=== PATIENT | male | born 1990 | race Caucasian/White ===

== ENCOUNTER 2020-04-28 20:28 | Inpatient (IN) | payer OTHER ==
[~2020-04-28] VITALS: Ht 170.2 cm; Wt 81.2 kg
--- NOTE | 2020-04-28 21:47 | NUR ---
SENT BY DR KAUFFMAN FOR ADMISSION FOR LEFT ANKLE SURGERY. PT AAOX4, VSS. RR EVEN & UNLABORED. DENIES CP, SOB, DIZZINESS, N/V AT THIS TIME. PT SEEN & EVAL'D BY DR. LINDQUIST. WILL CONT TO MONITOR.
[2020-04-28 22:03] LABS: BASOPHILS # (AUTO) 0.1 /CMM (0.0-0.2); BASOPHILS % (AUTO) 0.7 % (0.0-2.0); EOSINOPHILS % (AUTO) 3.5 % (0.0-6.0); HEMATOCRIT 43 % (39-51); HEMOGLOBIN 14.5 g/dL (13.5-17.5); LYMPHOCYTES % (AUTO) 26.9 % (20.0-44.0); MEAN CORPUSCULAR HGB CONC 34 g/dl (31.0-36.0); MEAN CORPUSCULAR VOLUME 88 fL (80-96); MONOCYTES # (AUTO) 0.4 /CMM (0.1-1.30); MONOCYTES % (AUTO) 5.5 % (2.0-12.0); NEUTROPHILS # (AUTO) 4.7 /CMM (1.8-8.9); NEUTROPHILS % (AUTO) 63.4 % (43.0-81.0); PLATELET COUNT (AUTO) 243 /CMM (150-450); RED BLOOD CELL COUNT(AUTO) 4.88 MIL/uL (4.5-6.0); WHITE BLOOD COUNT (AUTO) 7.5 K/uL (4.3-11.0)
[2020-04-28 22:22] LABS: CALCIUM, SERUM 9.5 mg/dL (8.5-10.1); CREATININE 1.1 mg/dL (0.6-1.3); POTASSIUM 3.8 mmol/L (3.5-5.1)
[2020-04-28] MEDS ORDERED: MORPHINE SULFATE INJ 2 MG/ML DISP.SYRIN IV PRN (22:30)
[2020-04-28] MEDS ORDERED: ONDANSETRON HCL/PF 4 MG/2 ML VIAL IVP PRN (22:30)
--- NOTE | 2020-04-28 22:51 | NUR ---
REPORT GIVEN TO JASMYN ROSA FOR [facility]
--- NOTE | 2020-04-29 00:19 | NUR ---
CALLED LAB RE DIALLOID RAPID RESULT, NEGATIVE
[2020-04-29 00:35] VITALS: BP 109/40
--- NOTE | 2020-04-29 00:35 | NUR ---
MS GREEN CHAIN PULLER NOTE RECEIVED PATIENT VIA GURNEY. PATIENT AMBULATED TO BED WITH CRUTCHES. TOLERATING ROOM AIR. RESPIRATIONS ARE EVEN AND UNLABORED. NO S/S SOB NOTED. NO C/O PAIN AT THIS TIME. STATES THAT LEFT ANKLE IS CRAMPING BUT NOT HURTING. IN NO APPARENT DISTRESS. IV ACCESS IN RAC #20 PATENT AND SALINE LOCKED. HOT SEALING MACHINE OPERATOR OBTAINED VITAL SIGNS AND COMPLETED BELONGINGS LIST. INITIAL PHYSICAL ASSESSMENT COMPLETED AT THIS TIME. SKIN ASSESSMENT CONDUCTED, SKIN INTACT. BED IS LOW AND LOCKED, HOB ELEVATED IN SEMI FOWLERS, SIDE RAILS UP X2. CALL LIGHT WITHIN REACH. INFORMED ON USE OF CALL LIGHT. ALSO INFORMED PATIENT OF PO STATUS FOR SURGERY. PATIENT UNDERSTOOD. NPO SIGN PLACED ON DOOR. CONSENT HAVE BEEN SIGNS FOR SURGERY, ANESTHESIA AND BLOOD. WILL CONTINUE TO MONITOR THROUGHOUT SHIFT.
--- NOTE | 2020-04-29 00:37 | NUR ---
pt was transferred to the third floor in stable condition via rney
[2020-04-29] MEDS ORDERED: FENTANYL PF 100MCG/2ML AMPUL ONE (06:21)
[2020-04-29] MEDS ORDERED: BACITRACIN 50000 UNITS/VIAL ONE (06:34)
[2020-04-29] MEDS ORDERED: BUPIVACAINE 0.5 % PF 150 MG/30 ML VIAL ONE (06:34)
[2020-04-29 06:37] LABS: BASOPHILS % (AUTO) 0.4 % (0.0-2.0); EOSINOPHILS % (AUTO) 2.9 % (0.0-6.0); HEMATOCRIT 39 % (39-51); HEMOGLOBIN 13.5 g/dL (13.5-17.5); LYMPHOCYTES # (AUTO) 2.3 /CMM (0.8-4.8); LYMPHOCYTES % (AUTO) 30.5 % (20.0-44.0); MEAN CORPUSCULAR HGB CONC 34 g/dl (31.0-36.0); MEAN CORPUSCULAR VOLUME 86 fL (80-96); MONOCYTES # (AUTO) 0.5 /CMM (0.1-1.30); MONOCYTES % (AUTO) 6.7 % (2.0-12.0); NEUTROPHILS # (AUTO) 4.5 /CMM (1.8-8.9); NEUTROPHILS % (AUTO) 59.5 % (43.0-81.0); PLATELET COUNT (AUTO) 220 /CMM (150-450); RED BLOOD CELL COUNT(AUTO) 4.57 MIL/uL (4.5-6.0); WHITE BLOOD COUNT (AUTO) 7.6 K/uL (4.3-11.0)
[2020-04-29 06:49] LABS: CALCIUM, SERUM 9.3 mg/dL (8.5-10.1); MAGNESIUM 2.3 mg/dL (1.8-2.4); PHOSPHORUS 4.2 mg/dL (2.5-4.9); POTASSIUM 3.6 mmol/L (3.5-5.1)
--- NOTE | 2020-04-29 06:54 | NUR ---
ms rn note surgery team came to get patient. transfered on bed. a/ox4. tolerating room air. no resp distress. in no apparent distress. iv access in rac#20 patent and saline locked.
[2020-04-29] MEDS ORDERED: HYDR-3980 PO (08:33)
[2020-04-29] MEDS ORDERED: FLUMAZENIL 0.5 MG VIAL ONE (08:35)
[2020-04-29 08:44] VITALS: BP 116/66
[2020-04-29] MEDS ORDERED: HYDROMORPHONE 1 MG/1 ML DISP.SYRIN ONE ×2 (09:06→09:31)
[2020-04-29 10:05] VITALS: BP 137/74
[2020-04-29] MEDS ORDERED: HYDROCODONE/APAP 5/325MG TABLET PO PRN (11:00)
[2020-04-29] MEDS: HYDROCODONE/APAP 5/325MG TABLET PO PRN ×2 (11:54→18:06)
[2020-04-29] MEDS ORDERED: IV NS 0.9% 1,000 ML IV PRN (12:00)
[2020-04-29 16:00] VITALS: BP 108/63
--- NOTE | 2020-04-29 19:10 | NUR ---
RN NOTE PATIENT DISCHARGE TEACHING GIVEN TO PATIENT. PATIENT VERBALIZED HIS UNDERSTANDING OF THE DISCHARGE TEACHINGS. PATIENT BELONGINGS RETURNED TO PATIENT. PATIENT DISCHARGE TO HOME IN STABLE CONDITION ACCOMPANIED BY HIS MOTHER. END RN NOTE. BN
== END 2020-04-29 19:05 | disposition home or self-care (01) | DRG 313 ==
LOC: ER 20:33 → MED 22:29
PROVIDERS: ATTEND Nurse Practitioner Acute Care
PROC: 0QSK04Z Reposition Left Fibula with Internal Fixation Device, Open Approach (ICD-10-PCS; principal; 2020-04-29)
PROC: 0SSG0ZZ Reposition Left Ankle Joint, Open Approach (ICD-10-PCS; 2020-04-29)
DX: S82.402A Unspecified fracture of shaft of left fibula, initial encounter for closed fracture (principal); Y93.66 Activity, soccer; Z20.822 Contact with and (suspected) exposure to COVID-19; Y92.322 Soccer field as the place of occurrence of the external cause; S93.432A Sprain of tibiofibular ligament of left ankle, initial encounter
CPT/HCPCS: 36415; 71045-TC; 80048-TC; 82962-TC; 83735-TC; 84100-TC; 85025-TC; 85730-TC; 87081-TC; 97116-TC; 97530-TC; A6253; A6402; C1713; G0378; J0690; J1100; J1170; J1885; J2001; J2405; J2704; J3010; J3490